=== PATIENT | male | born 1965 | race Caucasian/White ===

== ENCOUNTER 2017-07-08 21:19 | Observation (INO) | payer OTHER ==
[~2017-07-08] VITALS: Ht 170.2 cm; Wt 95.0 kg
[~2017-07-08 21:19] MED LIST: ALLOPURINOL100 MG PO; ASPIRIN325 MG PO; ATARAX,VISTARIL50 MG PO; ATORVASTATIN CA80 MG PO; CHLORDIAZEPOXID25 MG PO; CIPROFLOXACIN500 M1 PO; CITALOPRAM HBR20 MG PO; COLCRYS0.6 MG PO; ELIQUIS5 MG PO; FOLIC ACID1 MG PO; GABAPENTIN300 MG PO; HYDROCHLOROTH12.5 M3 PO; INDOCIN50 MG PO; INDOMETHACIN25 MG PO; INDOMETHACIN50 MG PO; LABETALOL HCL100 MG PO; LIDOCAINE700 MG TD; LIPITOR80 MG PO; LISINOPRIL20 MG PO; LISINOPRIL40 MG PO; LITE COAT ASPI325 M1 PO; LO-DOSE ASPIRIN81 M1 PO; MEDROL DOSEPAK4 MG PO; METHYLPREDNISOLO4 M1 PO; MOTRIN600 MG PO; MOTRIN800 MG PO; NORVASC10 MG PO; PERCOCET 5/31 TABLET PO; PLAVIX75 MG PO; POLYETHYLENE GL17 GM PO; PRAVASTATIN SOD40 MG PO; PRINIVIL20 MG PO; PROMETHAZINE HC50 M1 PO; SENNA PLUS TAB1 EACH PO; SERTRALINE HCL100 MG PO; TAMSULOSIN HCL0.4 MG PO; THERAGRAN1 TABLET PO; TOPROL XL50 MG PO; VICODIN,LORT1 TABLET PO; VITAMIN B-1100 MG PO; VITAMIN B-121000 MCG PO; ZESTORETIC 20-1 EACH PO; ZOLOFT100 MG PO
[2017-07-08 22:02] LABS: BASOPHIL (%) 0.5 % (0-1); BASOPHIL COUNT 0.1 K/uL (0-0.1); EOSINOPHIL (%) 0.7 % (0-5); EOSINOPHIL COUNT 0.1 K/uL (0-0.3); HEMATOCRIT 43.8 % (38.0-50.0); HEMOGLOBIN 15.3 G/DL (12.5-16.6); LYMPHOCYTE COUNT 1.9 K/uL (1.0-2.8); MCH 29.7 PG (29.0-34.0); MCHC 34.9 G/DL (30.0-36.0); MCV 84.9 FL (86-99); MONOCYTE (%) 5.2 % (3-12); MONOCYTE COUNT 0.7 K/uL (0-0.8); NEUTROPHIL (%) 77.6 % (45-76); NEUTROPHIL COUNT 9.8 K/uL (1.8-6.4); PLATELET COUNT 252 K/uL (156-360); RBC DIS.WIDTH-CV 13.2 % (11.8-14.6); RBC DIS.WIDTH-SD 40.8 % (39-53); RED BLOOD COUNT 5.16 M/uL (4.00-5.50); WHITE BLOOD COUNT 12.6 K/uL (4.1-10.2)
[2017-07-08 22:11] LABS: INTER. NORMALIZED RATIO 1.3
[2017-07-08 22:12] LABS: CHLORIDE 102 mEq/L (99-109); POTASSIUM 4.2 mEq/L (3.7-5.4); SODIUM 140 mEq/L (136-147)
[2017-07-08 22:13] LABS: PTT 31.2 SEC (25-37)
[2017-07-08 22:14] LABS: GLUCOSE 182 mg/dL (70-99)
[2017-07-08 22:18] LABS: CREATININE 0.9 mg/dL (0.6-1.3); GFR ESTIMATE (CALCULATED) > 59 mL/min/ (58.99-99999)
[2017-07-08 22:19] LABS: UREA NITROGEN (BUN) 13 mg/dL (9-23)
[2017-07-08 22:25] LABS: TROP-I INTERPRETATION NEGATIVE; TROPONIN-I < 0.01 ng/mL (0.0-0.30)
[2017-07-08 23:00] LABS: HDL CHOLESTEROL 24 MG/DL (Desirable>=40); LDL CHOLESTEROL < 5 mg/dL (Desirable<100); NON-HDL CHOLESTEROL 63 mg/dL (Desirable<160); TOTAL CHOLESTEROL 87 mg/dL (Desirable<200); TRIGLYCERIDES 379 MG/DL (Normal: <150)
[2017-07-08 23:35] LABS: APPEARANCE CLEAR ((CLEAR)); BILIRUBIN NEGATIVE; BLOOD NEGATIVE; COLOR YELLOW ((YELLOW)); GLUCOSE (STRIP) NEGATIVE; KETONES NEGATIVE; LEUKOCYTES NEGATIVE; NITRITE NEGATIVE; PROTEIN (STRIP) 100; SPECIFIC GRAVITY 1.021 (1.000-1.030); UROBILINOGEN 0.2 MG/DL (0.2-1.0)
[2017-07-08 23:39] LABS: BACTERIA 2+ /HPF; EPITHELIAL CELLS RARE /HPF; MUCUS 1+ /LPF; RED BLOOD CELLS 0-5 /HPF (0-5); UCUL ADDED? YES; WHITE BLOOD CELLS 0-5 /HPF (0-5)
[2017-07-09 03:40] VITALS: BP 130/75
[2017-07-09 05:51] LABS: SERUM ETHYL ALCOHOL < 10 mg/dL
[2017-07-09 08:00] VITALS: BP 132/86
[2017-07-09 11:30] VITALS: BP 136/87
[2017-07-09 12:39] LABS: HEMOGLOBIN A1c (GLYCOHEMOGLOB) 8.1 % (Below 5.7)
[2017-07-09] MEDS ORDERED: GABAPENTIN300 MG PO (15:43)
[2017-07-09] MEDS ORDERED: ELIQUIS5 MG PO (15:43)
[2017-07-09] MEDS ORDERED: LIPITOR80 MG PO (15:43)
[2017-07-09] MEDS ORDERED: METOPROLOL SUC100 MG PO (15:43)
[2017-07-09] MEDS ORDERED: FLOMAX0.4 MG PO (15:44)
[2017-07-09] MEDS ORDERED: METFORMIN HCL500 M1 PO ×2 (15:44)
[2017-07-09] MEDS ORDERED: LEXAPRO20 MG PO (15:44)
[2017-07-09] MEDS ORDERED: LISINOPRIL40 MG PO (15:44)
[2017-07-09 16:12] VITALS: BP 171/99
== END 2017-07-09 18:24 | disposition home or self-care (01) ==
LOC: EME 21:19 → ENRESERV 07-09 02:34 → EDOF 07-09 02:37 → ENRESERV 07-09 02:46 → 4SOUTH 07-09 03:32
PROVIDERS: Emergency Medicine
DX: H81.90 Unspecified disorder of vestibular function, unspecified ear (principal); I69.354 Hemiplegia and hemiparesis following cerebral infarction affecting left non-dominant side; I65.03 Occlusion and stenosis of bilateral vertebral arteries; I10 Essential (primary) hypertension; E78.5 Hyperlipidemia, unspecified; E53.8 Deficiency of other specified B group vitamins; F10.21 Alcohol dependence, in remission; F32.9 Major depressive disorder, single episode, unspecified; N40.0 Benign prostatic hyperplasia without lower urinary tract symptoms; K59.09 Other constipation; D72.829 Elevated white blood cell count, unspecified; Z87.442 Personal history of urinary calculi; Z80.8 Family history of malignant neoplasm of other organs or systems; Z82.49 Family history of ischemic heart disease and other diseases of the circulatory system
CPT/HCPCS: 70450; 70496; 70498; 70551; 80048; 80061; 81003; 83036; 84484; 85025; 85610; 85730; 87086; 93005; 99281; 99285; G0378; G0480; G8978 GP CK; G8979 CJ; G8987 CK; G8987 GO CL